=== PATIENT | female | born 1990 ===

== ENCOUNTER 2020-08-01 04:37 | Emergency (ER) | payer BC, OTHER ==
[2020-08-01 04:57] VITALS: BP 101/65; PULSE 70; TEMP 98.1; BMI 20.1
[2020-08-01] MEDS ORDERED: PSEUDOEPHEDRINE HCL 60 MG TABLET ONE (05:30)
[2020-08-01] MEDS ORDERED: PSEUDOEPHEDRINE HCL 60 MG TABLET PO ONE (05:30)
== END 2020-08-01 05:36 | disposition home or self-care (01) ==
LOC: JER 04:37
DX: H93.8X3 Other specified disorders of ear, bilateral (principal)
CPT/HCPCS: 99283-25

== ENCOUNTER 2022-12-02 08:20 | Inpatient (IN) | payer BC, OTHER ==
[2022-12-02] MEDS ORDERED: WITCH HAZEL 50% (TUCKS) 40 PAD/JAR PAD TP PRN (09:15)
[2022-12-02] MEDS ORDERED: ELECTROLYTE-148 SOLN 1,000 ML IV SCH (09:15)
[2022-12-02] MEDS ORDERED: OXYTOCIN 20 UNITS in 0.9% NS 20 UNIT/1,000 ML INFUS.BAG IV SCH (09:15)
[2022-12-02] MEDS ORDERED: BENZOCAINE 28 GM HEMORRHOIDAL OINTMENT TP PRN (09:15)
[2022-12-02] MEDS ORDERED: METHYLERGONOVINE MALEATE 0.2 MG/1 ML AMP IM PRN (09:15)
[2022-12-02] MEDS ORDERED: BENZOCAINE 20% 57 GM BOTTLE TP PRN (09:15)
[2022-12-02] MEDS ORDERED: BISACODYL 10 MG SUPP.RECT RC PRN (09:15)
[2022-12-02] MEDS ORDERED: ACETAMINOPHEN 325 MG TABLET (FP) PO PRN (09:15)
[2022-12-02 09:16] LABS: BASO % 0.5 % (0-2.0); EOS % 1.7 % (0-4.5); HEMATOCRIT 39.2 % (32.4-45.2); HEMOGLOBIN 13.1 GM/dL (10.7-15.3); LYMPH % 12.4 % (8-40); MCHC 33.4 g/dl (32.0-36.0); MEAN CELL VOLUME 80.8 fl (80-96); MEAN PLT VOLUME 9.3 fl (7.5-11.1); MONO % 5.9 % (3.8-10.2); NEUT % 79.5 % (42.8-82.8); PLATELET COUNT 215 10^3/uL (134-434); RBC 4.86 M/mm3 (3.60-5.2); RDW 14.3 % (11.6-15.6); WHITE BLOOD COUNT 14.6 K/mm3 (4.0-10.0)
[2022-12-02 09:25] LABS: ACTIVATED PTT 25.6 SECONDS (25.2-36.5); INR 0.9 (0.83-1.09); PROTHROMBIN TIME (PATIENT) 10.4 SEC (9.7-13.0)
[2022-12-02 10:02] LABS: SYPHILIS W/ RPR CONF NON-REACTIVE (NONREACTIVE)
[2022-12-02 10:10] LABS: CORD HCO3 21.3 mmHg (20-29); CORD PCO2 61.1 mmHg (30-78); CORD pH 7.161 (7.14-7.44)
[2022-12-02 10:14] LABS: CORD BASE EXCESS -6.8 mmol/L (0-2); CORD HCO3 19.8 mmHg (20-29); CORD pH 7.28 (7.14-7.44)
[2022-12-02 10:27] LABS: POTASSIUM 3.7 mmol/L (3.5-5.1)
[2022-12-02 10:30] LABS: HIV INTERPRETATION NEGATIVE (NEGATIVE)
[2022-12-02 10:30] LABS: BLOOD UREA NITROGEN 11.4 mg/dL (7-18); CALCIUM 8.5 mg/dL (8.5-10.1)
[2022-12-02 10:33] LABS: CREATININE 0.6 mg/dL (0.55-1.3)
[2022-12-02] MEDS ORDERED: IBUPROFEN 600 MG TABLET (FP) PO ONE (10:33)
[2022-12-02] MEDS: IBUPROFEN 600 MG TABLET (FP) PO PRN ×3 (10:36→22:32)
[2022-12-02 11:26] VITALS: BMI 23.6
[2022-12-02 18:11] VITALS: RESP 18
[2022-12-03 08:14] LABS: BASO % 0.6 % (0-2.0); EOS % 2.7 % (0-4.5); HEMATOCRIT 33.5 % (32.4-45.2); HEMOGLOBIN 10.7 GM/dL (10.7-15.3); MCH 26.6 pg (25.7-33.7); MCHC 31.9 g/dl (32.0-36.0); MEAN CELL VOLUME 83.2 fl (80-96); MEAN PLT VOLUME 9.9 fl (7.5-11.1); MONO % 6.7 % (3.8-10.2); PLATELET COUNT 180 10^3/uL (134-434); RBC 4.03 M/mm3 (3.60-5.2); RDW 14.2 % (11.6-15.6); WHITE BLOOD COUNT 13.2 K/mm3 (4.0-10.0)
[2022-12-03] MEDS: IBUPROFEN 600 MG TABLET (FP) PO PRN ×2 (10:26→22:03)
[2022-12-03] MEDS ORDERED: SENNOSIDES/DOCUSATE COMBO (SENNA PLUS) TABLET (UD) PO PRN (22:00)
[2022-12-04 10:25] VITALS: BP 124/84; PULSE 71; TEMP 98
== END 2022-12-04 13:06 | disposition home or self-care (01) | DRG 807 ==
LOC: JLDR 08:20 → J3W 11:25
PROVIDERS: ADMIT Obstetrics & Gynecology; ATTEND Obstetrics & Gynecology
PROC: 10E0XZZ Delivery of Products of Conception, External Approach (ICD-10-PCS; principal; 2022-12-02)
DX: O69.81X0 Labor and delivery complicated by cord around neck, without compression, not applicable or unspecified (principal); Z37.0 Single live birth; O36.5930 Maternal care for other known or suspected poor fetal growth, third trimester, not applicable or unspecified; Z3A.36 36 weeks gestation of pregnancy
CPT/HCPCS: 36415; 36600; 80048; 82803; 85025; 85610; 85730; 86780; 86850; 86900; 86901; 87389